=== PATIENT | male | born 2000 | race Caucasian/White ===

== ENCOUNTER 2021-05-17 09:54 | Emergency (ER) | payer OTHER ==
[~2021-05-17] VITALS: Ht 175.3 cm; Wt 81.8 kg
[2021-05-17] MEDS ORDERED: NAPR-885 PO (10:02)
[2021-05-17] MEDS ORDERED: ACET-683 PO (10:02)
--- NOTE | 2021-05-17 10:53 | REP ---
INDICATION: L great toe pain, injured yesterday. COMPARISON: None. TECHNIQUE: Four views of the left great toe. FINDINGS: Four views of the left great toe demonstrate an intra-articular nondisplaced avulsion chip fracture from the distal phalanx of the great toe at the IP joint. The fracture is seen along the lateral aspect of the great toe IP joint. There is associated swelling. No other fracture is seen.. . No opaque foreign body noted. IMPRESSION: Distal phalangeal chip fracture at the IP joint as above.. <Electronically signed by Haris Gooden > 05/17/21 1047
[2021-05-17 11:41] VITALS: BP 125/80
== END 2021-05-17 11:48 | disposition home or self-care (01) ==
LOC: M ED 09:54
DX: S92.425A Nondisplaced fracture of distal phalanx of left great toe, initial encounter for closed fracture (principal); W10.8XXA Fall (on) (from) other stairs and steps, initial encounter; Y92.9 Unspecified place or not applicable; Y93.9 Activity, unspecified; Y99.1 Military activity

== ENCOUNTER 2025-06-27 08:11 | Emergency (ER) | payer OTHER ==
[~2025-06-27] VITALS: Ht 175.3 cm; Wt 95.4 kg
[~2025-06-27 08:11] MED LIST: ACET-683 PO; NAPR-885 PO
[2025-06-27] MEDS: ACETAMINOPHEN 500 MG TAB PO ONE (10:01)
[2025-06-27 10:08] VITALS: BP 148/86; TEMP 97.6; O2SAT 99
== END 2025-06-27 10:09 | disposition home or self-care (01) ==
LOC: M ED 08:11
DX: R51.9 Headache, unspecified (principal); V49.40XA Driver injured in collision with unspecified motor vehicles in traffic accident, initial encounter; F17.200 Nicotine dependence, unspecified, uncomplicated; F10.10 Alcohol abuse, uncomplicated; Y92.410 Unspecified street and highway as the place of occurrence of the external cause; Y93.89 Activity, other specified; Y99.9 Unspecified external cause status; Z79.1 Long term (current) use of non-steroidal anti-inflammatories (NSAID)